=== PATIENT | male | born 1970 | race Hispanic/Latino ===

== ENCOUNTER 2017-08-22 14:40 | Outpatient (CLI) | payer OTHER ==
--- NOTE | 2017-08-22 16:58 | ULT ---
ULTRASOUND WITH DOPPLER DUPLEX VENOUS LOWER EXTREMITY RIGHT: CPT: 55787 ICD-10-PCS: B54D INDICATION: Right lower extremity pain, edema. TECHNIQUE: Color flow Doppler, spectral waveform analysis of pulsed Doppler, and felton-scale imaging with toney laisha and augmentation, were used to evaluate the bilateral common femoral, femoral, popliteal, forest fire fighter ior tibial, and superficial femoral, veins; and the proximal portions of the profunda femoral and gre ater saphenous, veins. FINDINGS: There is appropriate compressibility and flow within the imaged deep vein system of right lower extre mity. Incidental note of right inguinal region lymph nodes. Correlate clinically. IMPRESSION: 1. No deep venous thrombosis of imaged right lower extremity. 2. Right inguinal lymph nodes are present, nonspecific. These do not appear pathologically enlarged in short axis dimension. Correlate with clinical assessment. POS: SAVANNA
== END 2017-08-22 14:41 | disposition home or self-care (01) ==
LOC: NAV ULT 14:40
PROVIDERS: ATTEND Nurse Practitioner Family
DX: M79.661 Pain in right lower leg (principal)

== ENCOUNTER 2019-10-24 15:35 | Emergency (ER) | payer OTHER ==
[2019-10-24 16:00] LABS: INR-International Normal Ratio 1.1; Prothrombin Time 14.5 sec (12.0-14.7)
--- NOTE | 2019-10-24 16:03 | CT ---
CT head noncontrast HISTORY: Right-sided numbness. Altered mental status. COMPARISON: 03/31/2019. FINDINGS: There is no evidence of acute intracranial hemorrhage or infarct. Ventricles appear normal in size, shape and position. There is no mass effect or shift of midline structures. Chronic opacification of the left mastoid air cells again demonstrated. IMPRESSION : No acute abnormalities are demonstrated. Findings were called to Dr. Guerin in the [facility] emergency department at 1536 hours Code CR.
[2019-10-24 16:14] LABS: Anisocytosis MODERATE=16-30 cells (100X) (0-5/hpf); Hemoglobin 8.9 g/dL (14.0-18.0); Hypochromia SLIGHT = 6-15 cells (100X) (0-5/hpf); Lymphocytes 91 % (21-51); MDiff Complete? YES; Mean Corpuscular HGB CONC 28.7 g/dL (32.0-36.0); Mean Corpuscular Hemoglobin 27.2 pg (27.0-31.0); Mean Corpuscular Volume 95.1 fL (78.0-98.0); Mean Platelet Volume 6.9 fL (7.4-10.4); Neutrophil 8 % (42-75); Platelet Count 70 thou/uL (130-400); Platelet Morphology Comment Appears Decreased; RBC Distribution Width 15.5 % (11.5-14.5); Red Blood Cell (RBC) Count 3.28 mill/uL (4.70-6.10); Tear Drops SLIGHT = 2-5 cells (100X) (0-1/hpf); White Blood Cell (WBC) Count 2.3 thou/uL (4.8-10.8)
[2019-10-24 16:16] LABS: ALT (SGPT) 19 U/L (8-55); AST (SGOT) 31 U/L (5-34); Albumin 3.1 g/dL (3.5-5.0); Alkaline Phosphatase 108 U/L (40-110); Anion Gap 19 mmol/L (10-20); BUN (Urea Nitrogen) 5 mg/dL (8.9-20.6); Bilirubin, Total 0.4 mg/dL (0.2-1.2); CK (CPK) 18 U/L (30-200); Calc. Creatinine Clearance 0 mL/min (70-130); Calcium 7.9 mg/dL (7.8-10.44); Carbon Dioxide 22 mmol/L (22-29); Chloride 102 mmol/L (98-107); Estimated GFR-MDRD 81; Globulin 3.6 g/dL (2.4-3.5); Glucose 174 mg/dL (70-105); Potassium 3.1 mmol/L (3.5-5.1); Protein, Total 6.7 g/dL (6.0-8.3); Sodium 140 mmol/L (136-145)
--- NOTE | 2019-10-24 16:40 | CT ---
CT ANGIOGRAM NECK WITH CONTRAST CT ANGIOGRAM BRAIN WITH CONTRAST: DATE: 10/24/2019 HISTORY: 49-year-old male with acute stroke symptoms: Right-sided numbness and altered mental status. Dr. Snow discussed the findings by telephone with Dr. Guerin at 4:37 PM 10/24/2019 TECHNIQUE: After IV contrast injection, arterial bolus chasing technique scan performed from AP window to vertex of head. Coronal and sagittal 3-D MIP reconstructions. FINDINGS: Severe bilateral pulmonary interstitial lung disease, with large number of pulmonary air cysts of mojgan dusty sizes, from a few millimeters up to 3.3 cm, and central honeycombing. There is a large draining vein in the right posterior medial temporal and occipital region, draining into a dilated vein that communicates with dilated vein of Elio. Surrounding the drain vein in the right posterior medial temporal lobe and occipital lobe, there is a tangle of innumerable small and t iny tortuous abnormal blood vessels. There are probably small aneurysms among these. No high-grade stenosis, occlusion, or thrombosis, involving the bilateral carotid siphons, M1 segment s of the bilateral middle cerebral arteries, basilar artery, bilateral intracranial vertebral arteries, right posterior cerebral artery, or P2 segment of left posterior cerebral artery. There is diminutive left P1 segment, but the left RN MANAGER is normal in caliber. Patent left posterior communicating artery is noted. There is a prominent tortuous vein around the left RN MANAGER. No dural venous sinus thrombosis. No high-grade stenosis of bilateral internal carotid arteries or common carotid arteries. Left vertebral artery is dominant. No high-grade stenosis of bilateral cervical vertebral arteries. No high-grade stenosis of bilateral subclavian arteries. There is no calcified atheromatous plaque in any major vessel. 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 2) no evidence of M1 segment thrombosis or occlusion. 3) no high-grade stenosis of any major arteries of neck. 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
--- NOTE | 2019-10-24 16:48 | CT ---
CT ABDOMEN AND PELVIS WITH IV CONTRAST: 10/24/19 HISTORY: Abdominal pain. Right sided weakness. Focal rash around colostomy site and upper side of the body. FINDINGS: Comparison is made with the exam of 08/22/19. Changes of Langerhans cell histiocytosis in the lungs is again seen. There is fatty infiltration of t he liver without focal mass or abnormal biliary ductal dilatation. The spleen is enlarged measuring 1 4.5 cm. The pancreas, adrenal glands, and left kidney are normal. Tiny low density lesion in the righ t renal cortex is again seen. No calcified gallstones are seen. No free air, free fluid or lymphadeno rachelle is noted in the abdomen or pelvis. The small bowel loops are not abnormally dilated. Left lower quadrant colostomy with parastomal fat is again seen. There are vascular calcifications without evidence of aneurysmal dilatation of the abdominal aorta. N o osteolytic or osteoblastic lesions are seen. IMPRESSION: No evidence of acute process. POS: OFF
[2019-10-24] MEDS ORDERED: Sodium Chloride 0.9% 1,000 ML ONE (17:24)
[2019-10-24 18:08] LABS: Bilirubin Negative (Negative); Blood, Urine Negative (Negative); Clarity Clear (Clear); Glucose, Urine (Dipstick) Negative (Negative); Ketone, Urine Negative (Negative); Leukocyte Negative (Negative); Nitrite Negative (Negative); Protein, Urine (Dipstick) Negative (Neg-Trace); Urobilinogen 0.2 mg/dL (Less than 2)
[2019-10-24 18:11] LABS: Specific Gravity, Urine 1.028 (1.002-1.036)
== END 2019-10-24 18:17 | disposition short-term general hospital (02) ==
LOC: NAV ERS 15:35
DX: D76.3 Other histiocytosis syndromes (principal); R10.9 Unspecified abdominal pain; R53.1 Weakness; R20.0 Anesthesia of skin; E11.9 Type 2 diabetes mellitus without complications; J45.909 Unspecified asthma, uncomplicated; Z79.899 Other long term (current) drug therapy; Z79.4 Long term (current) use of insulin
CPT/HCPCS: 36416; 70450; 70496; 74177; 80053; 81003; 84484; 85025; 85610; 85730; 93005; 96360; J7050

== ENCOUNTER 2020-07-18 17:57 | Emergency (ER) | payer OTHER ==
[~2020-07-18 17:57] MED LIST: Iopamidol 370 76% 100 ML VIAL ONE
[2020-07-18] MEDS ORDERED: Cefepime 2 GM VIAL ONE (18:52)
[2020-07-18] MEDS ORDERED: Sodium Chloride 0.9% 500 ML ONE (18:52)
[2020-07-18] MEDS ORDERED: Morphine 4 MG/ML VIAL ONE (18:52)
[2020-07-18] MEDS ORDERED: Sodium Chloride 0.9% 100 ML ONE (19:00)
[2020-07-18 19:13] LABS: #Eosinphils 0.1 thou/uL (0.0-0.7); #Lymphocytes 2.6 thou/uL (1.20-3.40); #Monocytes 0.4 thou/uL (0.11-0.59); #Neutrophils 5.6 thou/uL (1.40-6.50); %Basophils 0.5 % (0.0-1.0); %Eosinophils 0.6 % (0.0-10.0); %Lymphocytes 29.8 % (21.0-51.0); %Monocytes 4.4 % (0.0-10.0); %Neutrophils 64.7 % (42.0-75.0); Hemoglobin 12.1 g/dL (14.0-18.0); Mean Corpuscular HGB CONC 28.4 g/dL (32.0-36.0); Mean Corpuscular Hemoglobin 27.3 pg (27.0-31.0); Mean Corpuscular Volume 95.9 fL (78.0-98.0); Mean Platelet Volume 5.1 fL (7.4-10.4); Platelet Count 138 thou/uL (130-400); RBC Distribution Width 15.8 % (11.5-14.5); Red Blood Cell (RBC) Count 4.42 mill/uL (4.70-6.10); White Blood Cell (WBC) Count 8.6 thou/uL (4.8-10.8)
[2020-07-18 19:23] LABS: ALT (SGPT) 28 U/L (8-55); AST (SGOT) 15 U/L (5-34); Albumin 3.6 g/dL (3.5-5.0); Alkaline Phosphatase 105 U/L (40-110); Anion Gap 14 mmol/L (10-20); BUN (Urea Nitrogen) 12 mg/dL (8.9-20.6); Bilirubin, Total 0.2 mg/dL (0.2-1.2); Calc. Creatinine Clearance 0 mL/min (70-130); Calcium 8.9 mg/dL (7.8-10.44); Carbon Dioxide 28 mmol/L (22-29); Chloride 105 mmol/L (98-107); Globulin 3.5 g/dL (2.4-3.5); Glucose 166 mg/dL (70-105); Potassium 3.9 mmol/L (3.5-5.1); Protein, Total 7.1 g/dL (6.0-8.3); Sodium 143 mmol/L (136-145)
[2020-07-18 19:41] LABS: Platelet Morphology Comment Appears Adequate; RBC Morphology Normal
[2020-07-18] MEDS ORDERED: diphenhydrAMINE 50 MG/ML VIAL ONE (22:17)
[2020-07-18] MEDS ORDERED: Sodium Chloride 0.9% 1,000 ML ONE (22:23)
== END 2020-07-18 22:53 | disposition short-term general hospital (02) ==
LOC: NAV ERS 17:57
DX: K94.00 Colostomy complication, unspecified (principal); L03.319 Cellulitis of trunk, unspecified; K52.9 Noninfective gastroenteritis and colitis, unspecified; E11.9 Type 2 diabetes mellitus without complications; J45.909 Unspecified asthma, uncomplicated; Z87.891 Personal history of nicotine dependence; Z79.51 Long term (current) use of inhaled steroids; Z79.899 Other long term (current) drug therapy
CPT/HCPCS: 36415; 74177; 80053; 83605; 85025; 87040; 96365; 96366; 96367; 96375; J0692; J1200; J2270; J3370; J3490; J7030; J7050; Q9967

== ENCOUNTER 2020-08-27 19:46 | Emergency (ER) | payer OTHER ==
[2020-08-27 20:25] LABS: #Basophils 0.1 thou/uL (0.0-0.2); #Eosinphils 0.1 thou/uL (0.0-0.7); #Lymphocytes 2.7 thou/uL (1.20-3.40); #Monocytes 0.4 thou/uL (0.11-0.59); %Basophils 0.7 % (0.0-1.0); %Eosinophils 1.6 % (0.0-10.0); %Lymphocytes 32.3 % (21.0-51.0); %Monocytes 5.2 % (0.0-10.0); %Neutrophils 60.2 % (42.0-75.0); Hemoglobin 10.7 g/dL (14.0-18.0); Mean Corpuscular HGB CONC 28.4 g/dL (32.0-36.0); Mean Corpuscular Hemoglobin 26.5 pg (27.0-31.0); Mean Corpuscular Volume 93.2 fL (78.0-98.0); Mean Platelet Volume 5.3 fL (7.4-10.4); Platelet Count 162 thou/uL (130-400); Red Blood Cell (RBC) Count 4.05 mill/uL (4.70-6.10); White Blood Cell (WBC) Count 8.4 thou/uL (4.8-10.8)
[2020-08-27] MEDS ORDERED: Ondansetron PF 4 MG/2 ML Vial ONE (20:29)
[2020-08-27] MEDS ORDERED: Sodium Chloride 0.9% 1,000 ML ONE (20:29)
[2020-08-27 20:39] LABS: ALT (SGPT) 29 U/L (8-55); AST (SGOT) 22 U/L (5-34); Albumin 3.6 g/dL (3.5-5.0); Alkaline Phosphatase 105 U/L (40-110); Anion Gap 14 mmol/L (10-20); BUN (Urea Nitrogen) 14 mg/dL (8.9-20.6); Bilirubin, Total 0.2 mg/dL (0.2-1.2); Calc. Creatinine Clearance 0 mL/min (70-130); Calcium 8.3 mg/dL (7.8-10.44); Carbon Dioxide 26 mmol/L (22-29); Chloride 104 mmol/L (98-107); Globulin 3.4 g/dL (2.4-3.5); Glucose 146 mg/dL (70-105); Potassium 3.6 mmol/L (3.5-5.1); Sodium 140 mmol/L (136-145)
== END 2020-08-27 21:29 | disposition home or self-care (01) ==
LOC: NAV ERS 19:46
DX: K94.09 Other complications of colostomy (principal); K52.9 Noninfective gastroenteritis and colitis, unspecified; J45.909 Unspecified asthma, uncomplicated; E11.9 Type 2 diabetes mellitus without complications; Z87.891 Personal history of nicotine dependence; Z79.899 Other long term (current) drug therapy
CPT/HCPCS: 74176; 80053; 83605; 85025; 96374; J2405; J7050

== ENCOUNTER 2020-09-03 20:52 | Emergency (ER) | payer OTHER, SELFPAY ==
[2020-09-03] MEDS ORDERED: Ondansetron PF 4 MG/2 ML Vial ONE (21:09)
[2020-09-03] MEDS ORDERED: Fentanyl 100 MCG/2 ML VIAL ONE (21:09)
[2020-09-03] MEDS ORDERED: Sodium Chloride 0.9% 1,000 ML ONE (21:09)
[2020-09-03 21:24] LABS: #Eosinphils 0.2 thou/uL (0.0-0.7); #Lymphocytes 2.7 thou/uL (1.20-3.40); #Monocytes 0.3 thou/uL (0.11-0.59); #Neutrophils 4.5 thou/uL (1.40-6.50); %Basophils 0.6 % (0.0-1.0); %Lymphocytes 35.1 % (21.0-51.0); %Monocytes 3.7 % (0.0-10.0); %Neutrophils 58.7 % (42.0-75.0); Hemoglobin 10.7 g/dL (14.0-18.0); Mean Corpuscular HGB CONC 28.5 g/dL (32.0-36.0); Mean Corpuscular Hemoglobin 26.5 pg (27.0-31.0); Mean Corpuscular Volume 92.9 fL (78.0-98.0); Mean Platelet Volume 4.7 fL (7.4-10.4); Platelet Count 185 thou/uL (130-400); RBC Distribution Width 16.1 % (11.5-14.5); Red Blood Cell (RBC) Count 4.03 mill/uL (4.70-6.10); White Blood Cell (WBC) Count 7.7 thou/uL (4.8-10.8)
[2020-09-03 21:36] LABS: Anisocytosis SLIGHT = 6-15 cells (100X) (0-5/hpf); Platelet Morphology Comment Appears Adequate
[2020-09-03 21:37] LABS: Hypochromia SLIGHT = 6-15 cells (100X) (0-5/hpf); Microcytosis MODERATE=15-30 cells (100X) (0-5/hpf)
[2020-09-03 21:39] LABS: ALT (SGPT) 36 U/L (8-55); AST (SGOT) 20 U/L (5-34); Albumin 3.4 g/dL (3.5-5.0); Alkaline Phosphatase 103 U/L (40-110); Anion Gap 14 mmol/L (10-20); BUN (Urea Nitrogen) 17 mg/dL (8.9-20.6); Bilirubin, Total 0.3 mg/dL (0.2-1.2); Calc. Creatinine Clearance 0 mL/min (70-130); Carbon Dioxide 29 mmol/L (22-29); Chloride 100 mmol/L (98-107); Globulin 3.4 g/dL (2.4-3.5); Glucose 98 mg/dL (70-105); Lipase 11 U/L (8-78); Potassium 3.3 mmol/L (3.5-5.1); Protein, Total 6.8 g/dL (6.0-8.3); Sodium 140 mmol/L (136-145)
== END 2020-09-04 00:12 | disposition short-term general hospital (02) ==
LOC: NAV ERS 20:52
DX: K43.3 Parastomal hernia with obstruction, without gangrene (principal); E11.9 Type 2 diabetes mellitus without complications; J45.909 Unspecified asthma, uncomplicated; Z87.891 Personal history of nicotine dependence; Z79.51 Long term (current) use of inhaled steroids; Z79.899 Other long term (current) drug therapy
CPT/HCPCS: 74177; 80053; 83605; 83690; 84484; 85025; 93005; 96374; 96375; J2405; J3010; J7050; Q9967

== ENCOUNTER → 2020-09-13 | Emergency (ER) | payer OTHER ==
[~2020-09-13] MED LIST changes: +Acetaminophen 500 MG TAB ONE; +Cefepime 2 GM VIAL ONE; +Fentanyl 100 MCG/2 ML VIAL ONE; +Morphine 4 MG/ML VIAL ONE; +Ondansetron PF 4 MG/2 ML Vial ONE; +Sodium Chloride 0.9% 1,000 ML ONE; +Sodium Chloride 0.9% 100 ML ONE; +Sodium Chloride 0.9% 500 ML ONE
[2020-09-13 11:17] LABS: #Basophils 0.1 thou/uL (0.0-0.2); #Eosinphils 0.1 thou/uL (0.0-0.7); #Lymphocytes 3.2 thou/uL (1.20-3.40); #Monocytes 0.4 thou/uL (0.11-0.59); #Neutrophils 5.2 thou/uL (1.40-6.50); %Basophils 0.9 % (0.0-1.0); %Eosinophils 1.5 % (0.0-10.0); %Lymphocytes 35.6 % (21.0-51.0); %Monocytes 4.7 % (0.0-10.0); %Neutrophils 57.3 % (42.0-75.0); Hemoglobin 11.3 g/dL (14.0-18.0); Mean Corpuscular HGB CONC 27.8 g/dL (32.0-36.0); Mean Corpuscular Hemoglobin 25.6 pg (27.0-31.0); Mean Corpuscular Volume 92.1 fL (78.0-98.0); Mean Platelet Volume 5.4 fL (7.4-10.4); Platelet Count 242 thou/uL (130-400); RBC Distribution Width 15.1 % (11.5-14.5); Red Blood Cell (RBC) Count 4.39 mill/uL (4.70-6.10); White Blood Cell (WBC) Count 9.1 thou/uL (4.8-10.8)
[2020-09-13 11:31] LABS: ALT (SGPT) 21 U/L (8-55); AST (SGOT) 17 U/L (5-34); Albumin 3.5 g/dL (3.5-5.0); Alkaline Phosphatase 166 U/L (40-110); Anion Gap 17 mmol/L (10-20); BUN (Urea Nitrogen) 10 mg/dL (8.9-20.6); Bilirubin, Total 0.4 mg/dL (0.2-1.2); Calc. Creatinine Clearance 0 mL/min (70-130); Calcium 8.4 mg/dL (7.8-10.44); Carbon Dioxide 23 mmol/L (22-29); Chloride 102 mmol/L (98-107); Globulin 4.3 g/dL (2.4-3.5); Glucose 97 mg/dL (70-105); Potassium 3.9 mmol/L (3.5-5.1); Protein, Total 7.8 g/dL (6.0-8.3); Sodium 138 mmol/L (136-145)
[2020-09-13 11:35] LABS: Hypochromia SLIGHT = 6-15 cells (100X) (0-5/hpf); MDiff Complete? YES; Platelet Morphology Comment Appears Adequate
[2020-09-13 11:46] LABS: Lipase Less than 4 U/L (8-78)
[2020-09-13 13:43] LABS: Bilirubin Negative (Negative); Blood, Urine Negative (Negative); Clarity Clear (Clear); Glucose, Urine (Dipstick) Negative (Negative); Ketone, Urine Negative (Negative); Leukocyte Negative (Negative); Nitrite Negative (Negative); Protein, Urine (Dipstick) Negative (Neg-Trace)
[2020-09-13 13:53] LABS: Lactic Acid 1.4 mmol/L (0.5-2.2)
== END ==
LOC: NAV ERS 10:41
DX: K56.609 Unspecified intestinal obstruction, unspecified as to partial versus complete obstruction (principal); L03.315 Cellulitis of perineum; D76.3 Other histiocytosis syndromes; E11.9 Type 2 diabetes mellitus without complications; J45.909 Unspecified asthma, uncomplicated; Z87.891 Personal history of nicotine dependence; Z79.51 Long term (current) use of inhaled steroids; Z79.899 Other long term (current) drug therapy
CPT/HCPCS: 36415; 74177; 80053; 81003; 83605; 83690; 85025; 87040; 87070; 87205; 96365; 96366; 96367; 96375; 96376; J0692; J2270; J2405; J3010; J3370; J3490; J7030; J7050; Q9967

== ENCOUNTER 2020-12-22 20:49 | Emergency (ER) | payer OTHER ==
[2020-12-22] MEDS ORDERED: Sodium Chloride 0.9% 1,000 ML ONE (22:30)
[2020-12-22] MEDS ORDERED: Insulin Regular 300 UNITS/3 ML VIAL ONE (22:30)
[2020-12-22 22:33] LABS: ALT (SGPT) 13 U/L (8-55); AST (SGOT) 7 U/L (5-34); Albumin 3.4 g/dL (3.5-5.0); Alkaline Phosphatase 105 U/L (40-110); Anion Gap 15 mmol/L (10-20); BUN (Urea Nitrogen) 17 mg/dL (8.9-20.6); Bilirubin, Total 0.4 mg/dL (0.2-1.2); Calc. Creatinine Clearance 0 mL/min (70-130); Carbon Dioxide 28 mmol/L (22-29); Chloride 99 mmol/L (98-107); Potassium 3.4 mmol/L (3.5-5.1); Protein, Total 7.4 g/dL (6.0-8.3); Sodium 139 mmol/L (136-145)
[2020-12-22 22:37] LABS: Mean Corpuscular HGB CONC 29.9 g/dL (32.0-36.0); Mean Corpuscular Hemoglobin 27.7 pg (27.0-31.0); Mean Corpuscular Volume 92.9 fL (78.0-98.0); Mean Platelet Volume 5.9 fL (7.4-10.4); Platelet Count 132 thou/uL (130-400); Red Blood Cell (RBC) Count 4.31 mill/uL (4.70-6.10)
[2020-12-22 22:38] LABS: #Eosinphils 0.1 thou/uL (0.0-0.7); #Lymphocytes 2.4 thou/uL (1.20-3.40); #Monocytes 0.3 thou/uL (0.11-0.59); #Neutrophils 3.3 thou/uL (1.40-6.50); %Basophils 0.6 % (0.0-1.0); %Eosinophils 0.9 % (0.0-10.0); %Lymphocytes 40.2 % (21.0-51.0); %Monocytes 4.2 % (0.0-10.0); %Neutrophils 54.1 % (42.0-75.0); Platelet Morphology Comment Appears Adequate; RBC Morphology Normal
[2020-12-22 22:41] LABS: Glucose 552 mg/dL (70-105)
[2020-12-22] MEDS ORDERED: Ketorolac Tromethamine 30 MG/ML VIAL ONE (23:00)
[2020-12-22 23:04] LABS: Bilirubin Negative (Negative); Blood, Urine Negative (Negative); Clarity Clear (Clear); Glucose, Urine (Dipstick) >=1000 mg/dL (Negative); Ketone, Urine Negative (Negative); Leukocyte Negative (Negative); Nitrite Negative (Negative); Protein, Urine (Dipstick) Negative (Neg-Trace); Specific Gravity, Urine 1.015 (1.005-1.030); Urobilinogen 0.2 mg/dL (Less than 2); pH, Urine 6.5 (5.0-9.0)
== END 2020-12-23 00:35 | disposition home or self-care (01) ==
LOC: NAV ERS 20:49
DX: E11.65 Type 2 diabetes mellitus with hyperglycemia (principal); Z79.899 Other long term (current) drug therapy; Z79.52 Long term (current) use of systemic steroids; J45.909 Unspecified asthma, uncomplicated; Z87.891 Personal history of nicotine dependence
CPT/HCPCS: 36416; 71045; 81003; 84484; 85025; 93005; 94760; 96374; 96375; J1815; J1885; J7050

== ENCOUNTER 2021-01-27 14:57 | Emergency (ER) | payer OTHER | END 2021-01-27 16:18 | disposition home or self-care (01) | LOC: NAV ERS 14:57 | DX: C96.6 Unifocal Langerhans-cell histiocytosis (principal); R21 Rash and other nonspecific skin eruption; G89.29 Other chronic pain; Z79.52 Long term (current) use of systemic steroids; Z79.4 Long term (current) use of insulin; Z79.899 Other long term (current) drug therapy; Z87.891 Personal history of nicotine dependence | CPT/HCPCS: 99283 ==

== ENCOUNTER 2021-03-01 02:05 | Emergency (ER) | payer OTHER ==
[2021-03-01] MEDS ORDERED: Morphine 4 MG/ML VIAL ONE (02:24)
[2021-03-01] MEDS ORDERED: Sodium Chloride 0.9% 1,000 ML ONE (02:24)
[2021-03-01] MEDS ORDERED: Ondansetron PF 4 MG/2 ML Vial ONE (02:24)
[2021-03-01 02:51] LABS: ALT (SGPT) 18 U/L (8-55); AST (SGOT) 18 U/L (5-34); Albumin 3.5 g/dL (3.5-5.0); Alkaline Phosphatase 129 U/L (40-110); Anion Gap 16 mmol/L (10-20); BUN (Urea Nitrogen) 12 mg/dL (8.9-20.6); Bilirubin, Total 0.5 mg/dL (0.2-1.2); Calc. Creatinine Clearance 0 mL/min (70-130); Calcium 9.6 mg/dL (7.8-10.44); Carbon Dioxide 26 mmol/L (22-29); Chloride 110 mmol/L (98-107); Globulin 4.7 g/dL (2.4-3.5); Glucose 151 mg/dL (70-105); Lipase 7 U/L (8-78); Potassium 3.9 mmol/L (3.5-5.1); Protein, Total 8.2 g/dL (6.0-8.3); Sodium 148 mmol/L (136-145)
[2021-03-01 02:54] LABS: #Basophils 0.1 thou/uL (0.0-0.2); #Eosinphils 0.1 thou/uL (0.0-0.7); #Lymphocytes 2.5 thou/uL (1.20-3.40); #Monocytes 0.4 thou/uL (0.11-0.59); #Neutrophils 4.6 thou/uL (1.40-6.50); %Basophils 0.7 % (0.0-1.0); %Eosinophils 1.4 % (0.0-10.0); %Lymphocytes 33.1 % (21.0-51.0); %Monocytes 4.6 % (0.0-10.0); %Neutrophils 60.2 % (42.0-75.0); Hemoglobin 11.9 g/dL (14.0-18.0); Mean Corpuscular HGB CONC 29.2 g/dL (32.0-36.0); Mean Corpuscular Hemoglobin 27.1 pg (27.0-31.0); Mean Corpuscular Volume 92.7 fL (78.0-98.0); Platelet Count 207 thou/uL (130-400); Red Blood Cell (RBC) Count 4.39 mill/uL (4.70-6.10); White Blood Cell (WBC) Count 7.6 thou/uL (4.8-10.8)
[2021-03-01 03:04] LABS: Platelet Morphology Comment Appears Adequate; RBC Morphology Normal
== END 2021-03-01 04:01 | disposition short-term general hospital (02) ==
LOC: NAV ERS 02:05
DX: R10.9 Unspecified abdominal pain (principal); E11.9 Type 2 diabetes mellitus without complications; Z87.891 Personal history of nicotine dependence; Z79.899 Other long term (current) drug therapy
CPT/HCPCS: 74177; 80053; 83605; 83690; 84484; 85025; 96374; 96375; J2270; J2405; J7050

== ENCOUNTER 2021-03-30 13:44 | Emergency (ER) | payer OTHER | END 2021-03-30 14:48 | disposition home or self-care (01) | LOC: NAV ERS 13:44 | DX: C96.6 Unifocal Langerhans-cell histiocytosis (principal); Z48.817 Encounter for surgical aftercare following surgery on the skin and subcutaneous tissue; E11.9 Type 2 diabetes mellitus without complications; J45.909 Unspecified asthma, uncomplicated; Z87.891 Personal history of nicotine dependence; Z79.4 Long term (current) use of insulin; Z79.52 Long term (current) use of systemic steroids; Z79.899 Other long term (current) drug therapy | CPT/HCPCS: 99282 ==

== ENCOUNTER 2021-11-12 22:35 | Emergency (ER) | payer OTHER | END 2021-11-13 01:05 | disposition home or self-care (01) | LOC: NAV ERS 22:35 | DX: K94.09 Other complications of colostomy (principal); E11.9 Type 2 diabetes mellitus without complications; Z87.891 Personal history of nicotine dependence | CPT/HCPCS: 99282 ==

== ENCOUNTER 2021-12-17 01:29 | Emergency (ER) | payer OTHER ==
[2021-12-17] MEDS ORDERED: Ketorolac Tromethamine 60 MG/2 ML VIAL ONE (03:07)
== END 2021-12-17 03:25 | disposition home or self-care (01) ==
LOC: NAV ERS 01:29
DX: M25.562 Pain in left knee (principal); E11.9 Type 2 diabetes mellitus without complications; Z87.891 Personal history of nicotine dependence; W19.XXXA Unspecified fall, initial encounter
CPT/HCPCS: 96372; J1885

== ENCOUNTER 2022-02-27 11:50 | Emergency (ER) | payer OTHER ==
[~2022-02-27 11:50] MED LIST changes: -Acetaminophen 500 MG TAB ONE; -Cefepime 2 GM VIAL ONE; -Fentanyl 100 MCG/2 ML VIAL ONE; -Morphine 4 MG/ML VIAL ONE; -Ondansetron PF 4 MG/2 ML Vial ONE; -Sodium Chloride 0.9% 1,000 ML ONE; -Sodium Chloride 0.9% 100 ML ONE; -Sodium Chloride 0.9% 500 ML ONE
[2022-02-27] MEDS ORDERED: Ondansetron PF 4 MG/2 ML Vial ONE (13:04)
[2022-02-27] MEDS ORDERED: Morphine 4 MG/ML VIAL ONE (13:04)
[2022-02-27 13:11] LABS: #Basophils 0.1 thou/uL (0.0-0.2); #Eosinphils 0.1 thou/uL (0.0-0.7); #Lymphocytes 2.1 thou/uL (1.20-3.40); #Monocytes 0.3 thou/uL (0.11-0.59); #Neutrophils 4.7 thou/uL (1.40-6.50); %Basophils 0.8 % (0.0-1.0); %Lymphocytes 29.3 % (21.0-51.0); %Monocytes 4.2 % (0.0-10.0); %Neutrophils 64.7 % (42.0-75.0); Hemoglobin 10.5 g/dL (14.0-18.0); Mean Corpuscular HGB CONC 29.4 g/dL (32.0-36.0); Mean Corpuscular Hemoglobin 27.2 pg (27.0-31.0); Mean Corpuscular Volume 92.7 fl (78.0-98.0); Mean Platelet Volume 6.2 fL (7.4-10.4); Platelet Count 192 10x3/uL (130-400); RBC Distribution Width 15.1 % (11.5-14.5); Red Blood Cell (RBC) Count 3.84 mill/uL (4.70-6.10); White Blood Cell (WBC) Count 7.2 10x3/uL (4.8-10.8)
[2022-02-27 13:23] LABS: ALT (SGPT) 13 U/L (8-55); AST (SGOT) 24 U/L (5-34); Albumin 3.2 g/dL (3.5-5.0); Alkaline Phosphatase 123 U/L (40-110); Anion Gap 17 mmol/L (10-20); BUN (Urea Nitrogen) 11 mg/dL (8.4-25.7); Bilirubin, Total 0.3 mg/dL (0.2-1.2); CK (CPK) 238 U/L (30-200); Calc. Creatinine Clearance 0 mL/min (70-130); Calcium 8.7 mg/dL (7.8-10.44); Carbon Dioxide 29 mmol/L (22-29); Chloride 92 mmol/L (98-107); Estimated GFR 67; Globulin 5.3 g/dL (2.4-3.5); Glucose 296 mg/dL (70-105); Lipase 26 U/L (8-78); Protein, Total 8.5 g/dL (6.0-8.3); Sodium 135 mmol/L (136-145)
[2022-02-27 13:30] LABS: Platelet Morphology Comment Appears Adequate
[2022-02-27 13:31] LABS: Stomatocytes SLIGHT = 2-5 cells (100X) (0-1/hpf)
[2022-02-27 13:32] LABS: Anisocytosis SLIGHT = 6-15 cells (100X) (0-5/hpf); Macrocytosis SLIGHT = 6-15 cells (100X) (0-5/hpf); Microcytosis SLIGHT = 6-15 cells (100X) (0-5/hpf)
[2022-02-27] MEDS ORDERED: Sodium Chloride 0.9% 1,000 ML ONE (13:54)
[2022-02-27 14:24] LABS: Bilirubin Negative (Negative); Blood, Urine Negative (Negative); Clarity Clear (Clear); Glucose, Urine (Dipstick) 100 mg/dL (Negative); Ketone, Urine Negative (Negative); Leukocyte Negative (Negative); Nitrite Negative (Negative); Protein, Urine (Dipstick) Negative (Neg-Trace); Urobilinogen 0.2 mg/dL (Less than 2)
[2022-02-27 14:26] LABS: Specific Gravity, Urine 1.006 (1.002-1.036)
[2022-02-27 16:14] LABS: Lactic Acid 2.1 mmol/L (0.5-2.2)
[2022-02-27] MEDS ORDERED: NS 0.9% w/ 20 MEQ KCL 1,000 ML ONE (17:29)
[2022-02-27] MEDS ORDERED: Morphine 2 MG/ML VIAL ONE (18:22)
[2022-02-27 19:44] LABS: Hemoglobin 9.7 g/dL (14.0-18.0)
[2022-02-27 19:53] LABS: INR-International Normal Ratio 1.1; Prothrombin Time 14.5 sec (12.0-14.7)
[2022-02-27 19:54] LABS: PTT 32.7 sec (22.9-36.1)
== END 2022-02-27 20:25 | disposition short-term general hospital (02) ==
LOC: NAV ERS 11:50
DX: R10.9 Unspecified abdominal pain (principal); R09.02 Hypoxemia; E11.9 Type 2 diabetes mellitus without complications; E78.5 Hyperlipidemia, unspecified; J45.909 Unspecified asthma, uncomplicated; Z79.82 Long term (current) use of aspirin; Z79.899 Other long term (current) drug therapy; Z87.891 Personal history of nicotine dependence
CPT/HCPCS: 36415; 71045; 74177; 80053; 81003; 82274; 82550; 83605; 83690; 85025; 85610; 85730; 93005; 94760; 96374; 96375; 96376; J2270; J2405; J3480; J7050; J7620; Q9967

== ENCOUNTER 2022-11-26 19:35 | Emergency (ER) | payer MEDICAID, OTHER ==
[2022-11-26 20:31] LABS: #Basophils 0.1 thou/uL (0.0-0.2); #Eosinphils 0.1 thou/uL (0.0-0.7); #Lymphocytes 2.7 thou/uL (1.20-3.40); #Monocytes 0.4 thou/uL (0.11-0.59); #Neutrophils 3.1 thou/uL (1.40-6.50); %Basophils 1.1 % (0.0-1.0); %Eosinophils 0.8 % (0.0-10.0); %Lymphocytes 42.6 % (21.0-51.0); %Monocytes 5.8 % (0.0-10.0); %Neutrophils 49.7 % (42.0-75.0); Hematocrit 35.9 % (42.0-52.0); Hemoglobin 10.3 g/dL (14.0-18.0); Mean Corpuscular HGB CONC 28.7 g/dL (32.0-36.0); Mean Corpuscular Hemoglobin 26.9 pg (27.0-31.0); Mean Corpuscular Volume 93.8 fl (78.0-98.0); Mean Platelet Volume 4.6 fL (7.4-10.4); Platelet Count 157 10x3/uL (130-400); RBC Distribution Width 15.8 % (11.5-14.5); Red Blood Cell (RBC) Count 3.83 mill/uL (4.70-6.10); White Blood Cell (WBC) Count 6.3 10x3/uL (4.8-10.8)
[2022-11-26 20:56] LABS: ALT (SGPT) 18 U/L (8-55); AST (SGOT) 23 U/L (5-34); Albumin 2.8 g/dL (3.5-5.0); Alkaline Phosphatase 114 U/L (40-110); Anion Gap 12 mmol/L (10-20); BUN (Urea Nitrogen) 9 mg/dL (8.4-25.7); Bilirubin, Total Less than 0.2 mg/dL (0.2-1.2); Calc. Creatinine Clearance 0 mL/min (70-130); Calcium 8.8 mg/dL (7.8-10.44); Carbon Dioxide 26 mmol/L (22-29); Chloride 110 mmol/L (98-107); Estimated GFR 112; Glucose 114 mg/dL (70-105); Potassium 4.2 mmol/L (3.5-5.1); Protein, Total 6.8 g/dL (6.0-8.3); Sodium 144 mmol/L (136-145)
[2022-11-26 20:57] LABS: Troponin I Less than 0.010 ng/mL (< 0.028)
== END 2022-11-26 21:50 | disposition home or self-care (01) ==
LOC: NAV ERS 19:35
DX: J20.8 Acute bronchitis due to other specified organisms (principal); J84.10 Pulmonary fibrosis, unspecified; R09.02 Hypoxemia; E11.9 Type 2 diabetes mellitus without complications; Z87.891 Personal history of nicotine dependence
CPT/HCPCS: 71045; 80053; 83880; 84484; 85025; 93005

== ENCOUNTER 2022-12-02 15:38 | Emergency (ER) | payer MEDICAID, OTHER ==
[2022-12-02] MEDS ORDERED: Sodium Chloride 0.9% 1,000 ML ONE ×2 (15:52→16:06)
[2022-12-02 16:19] LABS: #Basophils 0.1 thou/uL (0.0-0.2); #Lymphocytes 2.4 thou/uL (1.20-3.40); #Monocytes 0.4 thou/uL (0.11-0.59); #Neutrophils 8.8 thou/uL (1.40-6.50); %Basophils 0.6 % (0.0-1.0); %Eosinophils 0.1 % (0.0-10.0); %Lymphocytes 20.5 % (21.0-51.0); %Monocytes 3.1 % (0.0-10.0); %Neutrophils 75.7 % (42.0-75.0); Hematocrit 41.5 % (42.0-52.0); Hemoglobin 12.1 g/dL (14.0-18.0); Mean Corpuscular Hemoglobin 27.3 pg (27.0-31.0); Mean Corpuscular Volume 94.2 fl (78.0-98.0); Mean Platelet Volume 5.8 fL (7.4-10.4); Platelet Count 152 10x3/uL (130-400); RBC Distribution Width 16.7 % (11.5-14.5); Red Blood Cell (RBC) Count 4.41 mill/uL (4.70-6.10); White Blood Cell (WBC) Count 11.7 10x3/uL (4.8-10.8)
[2022-12-02] MEDS ORDERED: Cefepime 2 GM VIAL ONE (16:22)
[2022-12-02] MEDS ORDERED: Sodium Chloride 0.9% 100 ML ONE (16:22)
[2022-12-02 17:02] LABS: Chloride 112 mmol/L (98-107)
[2022-12-02 17:04] LABS: Calcium, Ionized 1.11 mmol/L (1.15-1.33); T. Carbon Dioxide 32.4 mmol/L (22.0-28.0)
[2022-12-02 17:07] LABS: Base Excess-Venous 3.5 mmol/L (-2.0 to 3.0); Bicarbonate (HCO3v) 30.7 mmol/L (22.0-28.0)
[2022-12-02 17:08] LABS: ALT (SGPT) 26 U/L (8-55); AST (SGOT) 49 U/L (5-34); Alkaline Phosphatase 261 U/L (40-110); Anion Gap 17 mmol/L (10-20); BUN (Urea Nitrogen) 16 mg/dL (8.4-25.7); Bilirubin, Total 0.3 mg/dL (0.2-1.2); Calc. Creatinine Clearance 0 mL/min (70-130); Calcium 8.9 mg/dL (7.8-10.44); Carbon Dioxide 25 mmol/L (22-29); Chloride 109 mmol/L (98-107); Estimated GFR 106; Globulin 4.3 g/dL (2.4-3.5); Glucose 130 mg/dL (70-105); Hemoglobin - Calc 14.3 g/dL (14.0-18.0); Potassium 3.8 mmol/L (3.5-5.1); Protein, Total 7.3 g/dL (6.0-8.3); Sodium 147 mmol/L (136-145); Sodium 151 mmol/L (138-145); vO2 Saturation-calc 87.2 % (60.0-85.0)
[2022-12-02 17:09] LABS: Potassium 3.8 mmol/L (3.5-5.1)
[2022-12-02] MEDS ORDERED: LevoFLOXacin 750 mg/D5W 150 ml Premix Bag ONE (17:14)
[2022-12-02] MEDS ORDERED: Ipratropium/Albuterol 3 ML NEB ONE ×2 (17:15→18:45)
[2022-12-02] MEDS ORDERED: methylPREDNISolone Sod Succ/PF 125 MG/2 ML VIAL ONE (17:15)
[2022-12-02 18:31] LABS: Bilirubin Negative (Negative); Blood, Urine Negative (Negative); Clarity Clear (Clear); Glucose, Urine (Dipstick) >=1000 mg/dL (Negative); Ketone, Urine Negative (Negative); Leukocyte Negative (Negative); Nitrite Negative (Negative); Protein, Urine (Dipstick) Negative (Neg-Trace); Urobilinogen 0.2 mg/dL (Less than 2); pH, Urine 5.5 (5.0-9.0)
[2022-12-02 18:37] LABS: CAUTI Indications for Culture Dysuria,urgency,freq
[2022-12-02 18:38] LABS: Bacteria/HPF Rare-Few HPF (None Seen); RBC/HPF None Seen HPF (0-3); Squamous Epithelial None Seen HPF (0-3); WBC/HPF None Seen HPF (0-3)
[2022-12-02 18:39] LABS: Urine Culture Reflex No No
[2022-12-02] MEDS ORDERED: Magnesium 2 GM/50 ML BAG (IN WATER) ONE (18:45)
[2022-12-02 19:08] LABS: SARS-CoV-2 NAA Rapid Test Not Detected (NotDetected)
[2022-12-02] MEDS ORDERED: Sodium Chloride 0.9% 250 ML 250 ML ONE (19:42)
[2022-12-02] MEDS ORDERED: Vancomycin 1 GM VIAL ONE (19:42)
[2022-12-02 22:25] LABS: Base Excess (BEa) 0.6 mEq/L (-2.0 to +3.0); CO2 Tension 51.4 mmHg (35.0-45.0); Calcium, Ionized (arterial) 1.14 mmol/L (1.12-1.30); Carboxyhemoglobin (COHb) 0.5 gm% (0.0-3.0); Hematocrit-ABG 35 % (42.0-52.0); O2 Tension (PaO2), arterial 93.7 mmHg (80.0-100.0); pH, Arterial 7.339 (7.35-7.45)
[2022-12-04 08:11] LABS: Puncture Site LRA
== END 2022-12-02 20:40 | disposition short-term general hospital (02) ==
LOC: NAV ERS 15:38
DX: R06.03 Acute respiratory distress (principal); A41.9 Sepsis, unspecified organism; E11.9 Type 2 diabetes mellitus without complications; J45.909 Unspecified asthma, uncomplicated; Z20.822 Contact with and (suspected) exposure to COVID-19; Z87.891 Personal history of nicotine dependence; Z79.899 Other long term (current) drug therapy; Z79.84 Long term (current) use of oral hypoglycemic drugs
CPT/HCPCS: 36415; 36416; 36600; 71045; 80053; 81001; 82330; 82803; 82805; 83605; 85025; 87040; 96361; 96365; 96366; 96367; 96375; J0692; J1956; J2930; J3370; J3475; J3490; J7050; J7620

== ENCOUNTER 2023-01-01 22:55 | Emergency (ER) | payer OTHER, SELFPAY ==
[2023-01-01] MEDS ORDERED: Ipratropium/Albuterol 3 ML NEB ONE (23:15)
[2023-01-01] MEDS ORDERED: Cefepime 2 GM VIAL ONE (23:27)
[2023-01-01] MEDS ORDERED: Sodium Chloride 0.9% 0 ML ONE (23:27)
[2023-01-01] MEDS ORDERED: Sodium Chloride 0.9% 100 ML ONE (23:28)
[2023-01-01] MEDS ORDERED: Sodium Chloride 0.9% 250 ML 500 ML ONE (23:30)
[2023-01-01] MEDS ORDERED: Vancomycin 1 GM VIAL ONE (23:30)
[2023-01-01 23:33] LABS: #Basophils 0.1 thou/uL (0.0-0.2); #Eosinphils 0.1 thou/uL (0.0-0.7); #Lymphocytes 4.5 thou/uL (1.20-3.40); #Monocytes 0.9 thou/uL (0.11-0.59); #Neutrophils 8.4 thou/uL (1.40-6.50); %Basophils 0.7 % (0.0-1.0); %Eosinophils 0.8 % (0.0-10.0); %Monocytes 6.2 % (0.0-10.0); %Neutrophils 60.3 % (42.0-75.0); Hematocrit 37.5 % (42.0-52.0); Hemoglobin 11.2 g/dL (14.0-18.0); Mean Corpuscular Volume 93.4 fl (78.0-98.0); Mean Platelet Volume 5.7 fL (7.4-10.4); Platelet Count 200 10x3/uL (130-400); RBC Distribution Width 15.9 % (11.5-14.5); Red Blood Cell (RBC) Count 4.01 mill/uL (4.70-6.10)
[2023-01-01 23:42] LABS: Bicarbonate (HCO3v) 33.2 mmol/L (22.0-28.0); CO2 Tension (PvCO2) 78.6 mmHg (42.0-51.0); Calcium, Ionized 1.18 mmol/L (1.15-1.33); Chloride 104 mmol/L (98-107); Hemoglobin - Calc 13.9 g/dL (14.0-18.0); Potassium 3.7 mmol/L (3.5-5.1); Sodium 145 mmol/L (138-145); T. Carbon Dioxide 35.6 mmol/L (22.0-28.0); vO2 Saturation-calc 73.9 % (60.0-85.0)
[2023-01-01 23:45] LABS: ALT (SGPT) 29 U/L (8-55); AST (SGOT) 40 U/L (5-34); Albumin 3.2 g/dL (3.5-5.0); Alkaline Phosphatase 158 U/L (40-110); Anion Gap 13 mmol/L (10-20); BUN (Urea Nitrogen) 12 mg/dL (8.4-25.7); Bilirubin, Total 0.2 mg/dL (0.2-1.2); Calc. Creatinine Clearance 0 mL/min (70-130); Calcium 8.7 mg/dL (7.8-10.44); Carbon Dioxide 30 mmol/L (22-29); Chloride 106 mmol/L (98-107); Estimated GFR 109; Globulin 3.6 g/dL (2.4-3.5); Glucose 109 mg/dL (70-105); Protein, Total 6.8 g/dL (6.0-8.3); Sodium 146 mmol/L (136-145)
[2023-01-02] MEDS ORDERED: LevoFLOXacin 750 mg/D5W 150 ml Premix Bag ONE (00:04)
[2023-01-02 00:38] LABS: Bilirubin Negative (Negative); Blood, Urine Negative (Negative); Clarity Clear (Clear); Glucose, Urine (Dipstick) 500 mg/dL (Negative); Ketone, Urine Negative (Negative); Leukocyte Negative (Negative); Nitrite Negative (Negative); Protein, Urine (Dipstick) 100 mg/dL (Neg-Trace); Specific Gravity, Urine 1.015 (1.005-1.030); Urobilinogen 0.2 mg/dL (Less than 2); pH, Urine 5.5 (5.0-9.0)
[2023-01-02 00:38] LABS: SARS-CoV-2 NAA Rapid Test Not Detected (NotDetected)
[2023-01-02 00:59] LABS: Bacteria/HPF None Seen HPF (None Seen); CAUTI Indications for Culture Pelvic or flank pain; RBC/HPF None Seen HPF (0-3); Squamous Epithelial 0-3 HPF (0-3); WBC/HPF None Seen HPF (0-3)
[2023-01-02 01:00] LABS: Urine Culture Reflex No No
[2023-01-02 01:01] LABS: Base Excess-Venous 1.2 mmol/L (-2.0 to 3.0); Bicarbonate (HCO3v) 31.5 mmol/L (22.0-28.0); CO2 Tension (PvCO2) 79.2 mmHg (42.0-51.0); Calcium, Ionized 1.19 mmol/L (1.15-1.33); Chloride 106 mmol/L (98-107); Hemoglobin - Calc 13.5 g/dL (14.0-18.0); Potassium 2.7 mmol/L (3.5-5.1); Sodium 146 mmol/L (138-145); T. Carbon Dioxide 33.9 mmol/L (22.0-28.0); vO2 Saturation-calc 69.7 % (60.0-85.0)
== END 2023-01-02 01:02 | disposition short-term general hospital (02) ==
LOC: NAV ERS 22:55
DX: R06.03 Acute respiratory distress (principal); E11.9 Type 2 diabetes mellitus without complications; Z20.822 Contact with and (suspected) exposure to COVID-19; Z87.891 Personal history of nicotine dependence
CPT/HCPCS: 71045; 80053; 81001; 82330; 82435; 82803; 83880; 84132; 84295; 85014; 85025; 87040; 87070; 87077; 87149; 87186; 87205; 93005; 96365; 96367; 96375; J0692; J1956; J3370; J3490; J7050; J7620

== ENCOUNTER 2023-04-09 19:28 | Emergency (ER) | payer MEDICAID, OTHER ==
[2023-04-09 20:15] LABS: ALT (SGPT) 16 U/L (8-55); AST (SGOT) 24 U/L (5-34); Albumin 2.9 g/dL (3.5-5.0); Alkaline Phosphatase 150 U/L (40-110); Anion Gap 18 mmol/L (10-20); BUN (Urea Nitrogen) 13 mg/dL (8.4-25.7); Bilirubin, Total 0.3 mg/dL (0.2-1.2); Calc. Creatinine Clearance 0 mL/min (70-130); Calcium 8.8 mg/dL (7.8-10.44); Carbon Dioxide 35 mmol/L (22-29); Chloride 102 mmol/L (98-107); Estimated GFR 104; Globulin 5.1 g/dL (2.4-3.5); Glucose 130 mg/dL (70-105); Potassium 2.9 mmol/L (3.5-5.1)
[2023-04-09 20:19] LABS: Sodium 152 mmol/L (136-145)
[2023-04-09 20:21] LABS: #Basophils 0.1 thou/uL (0.0-0.2); #Lymphocytes 3.4 thou/uL (1.20-3.40); #Monocytes 0.6 thou/uL (0.11-0.59); #Neutrophils 4.1 thou/uL (1.40-6.50); %Basophils 0.7 % (0.0-1.0); %Eosinophils 0.6 % (0.0-10.0); %Lymphocytes 41.4 % (21.0-51.0); %Monocytes 7.2 % (0.0-10.0); %Neutrophils 50.2 % (42.0-75.0); Hematocrit 34.8 % (42.0-52.0); Hemoglobin 10.3 g/dL (14.0-18.0); Mean Corpuscular HGB CONC 29.7 g/dL (32.0-36.0); Mean Corpuscular Hemoglobin 27.4 pg (27.0-31.0); Mean Corpuscular Volume 92.5 fl (78.0-98.0); Mean Platelet Volume 6.3 fL (7.4-10.4); Platelet Count 147 10x3/uL (130-400); RBC Distribution Width 15.9 % (11.5-14.5); Red Blood Cell (RBC) Count 3.76 mill/uL (4.70-6.10); White Blood Cell (WBC) Count 8.2 10x3/uL (4.8-10.8)
[2023-04-09] MEDS ORDERED: Potassium Chloride 20 MEQ (100 mL) BAG ONE (20:35)
[2023-04-09 20:38] LABS: Base Excess-Venous 11.6 mmol/L (-2.0 to 3.0); Calcium, Ionized 1.14 mmol/L (1.15-1.33); Chloride 105 mmol/L (98-107); Hemoglobin - Calc 13.5 g/dL (14.0-18.0); T. Carbon Dioxide 43.5 mmol/L (22.0-28.0); vO2 Saturation-calc 42.7 % (60.0-85.0)
[2023-04-09 20:39] LABS: Bicarbonate (HCO3v) 41.1 mmol/L (22.0-28.0); CO2 Tension (PvCO2) 78.1 mmHg (42.0-51.0); Sodium 154 mmol/L (138-145)
[2023-04-09] MEDS ORDERED: Ipratropium/Albuterol 3 ML NEB ONE (20:44)
[2023-04-09] MEDS ORDERED: methylPREDNISolone Sod Succ/PF 125 MG/2 ML VIAL ONE (21:13)
[2023-04-09] MEDS ORDERED: Cefepime 2 GM VIAL ONE (21:13)
== END 2023-04-09 21:11 | disposition short-term general hospital (02) ==
LOC: NAV ERS 19:28
DX: J80 Acute respiratory distress syndrome (principal); E11.9 Type 2 diabetes mellitus without complications; E78.5 Hyperlipidemia, unspecified; J45.909 Unspecified asthma, uncomplicated; Z87.891 Personal history of nicotine dependence; Z79.84 Long term (current) use of oral hypoglycemic drugs; Z79.899 Other long term (current) drug therapy
CPT/HCPCS: 36415; 71045; 80053; 82330; 82803; 85025; 87040; 96365; 96375; J0692; J2930; J3480; J7620

== ENCOUNTER 2023-07-29 17:36 | Emergency (ER) | payer MEDICAID, OTHER, SELFPAY ==
[2023-07-29 18:02] LABS: #Basophils 0.1 thou/uL (0.0-0.2); #Lymphocytes 3.3 thou/uL (1.20-3.40); #Monocytes 0.5 thou/uL (0.11-0.59); %Eosinophils 0.1 % (0.0-10.0); %Lymphocytes 30.3 % (21.0-51.0); %Monocytes 4.2 % (0.0-10.0); %Neutrophils 64.6 % (42.0-75.0); Hematocrit 26.6 % (42.0-52.0); Hemoglobin 7.3 g/dL (14.0-18.0); Mean Corpuscular HGB CONC 27.3 g/dL (32.0-36.0); Mean Corpuscular Volume 98.9 fl (78.0-98.0); Mean Platelet Volume 6.8 fL (7.4-10.4); Platelet Count 58 10x3/uL (130-400); RBC Distribution Width 19.9 % (11.5-14.5); Red Blood Cell (RBC) Count 2.69 mill/uL (4.70-6.10); White Blood Cell (WBC) Count 10.9 10x3/uL (4.8-10.8)
[2023-07-29 18:03] LABS: ALT (SGPT) 18 U/L (8-55); AST (SGOT) 25 U/L (5-34); Albumin 2.5 g/dL (3.5-5.0); Alkaline Phosphatase 266 U/L (40-110); Anion Gap 24 mmol/L (10-20); BUN (Urea Nitrogen) 40 mg/dL (8.4-25.7); Bilirubin, Total 0.5 mg/dL (0.2-1.2); Calc. Creatinine Clearance 0 mL/min (70-130); Calcium 8.8 mg/dL (7.8-10.44); Carbon Dioxide 29 mmol/L (22-29); Chloride 90 mmol/L (98-107); Estimated GFR 98; Globulin 3.9 g/dL (2.4-3.5); Glucose 146 mg/dL (70-105); Potassium 3.5 mmol/L (3.5-5.1); Protein, Total 6.4 g/dL (6.0-8.3); Sodium 139 mmol/L (136-145)
[2023-07-29] MEDS ORDERED: NOREPINEPHRINE 8 MG/250 ML-D5W 250 ML ONE (18:03)
[2023-07-29 18:04] LABS: Troponin I 0.021 ng/mL (< 0.028)
== END 2023-07-29 19:00 | disposition short-term general hospital (02) ==
LOC: NAV ERS 17:36
DX: I46.9 Cardiac arrest, cause unspecified (principal); J96.01 Acute respiratory failure with hypoxia; E11.9 Type 2 diabetes mellitus without complications; Z79.4 Long term (current) use of insulin; Z87.891 Personal history of nicotine dependence
CPT/HCPCS: 36556; 36600; 71045; 80053; 82805; 84484; 85025; 92950